=== PATIENT | male | born 1955 | race Caucasian/White ===

== ENCOUNTER → 2016-09-21 | Outpatient (CLI) | payer BC ==
[~2016-09-21] MED LIST: ALBU1AER9 INH; ASPI81TA28 PO; DUTA0.5C PO; MISC1CAP60 PO; MULT-610 PO; POLYSOL4 OP; PRLSR20 PO; SIMV10TA2 PO; TAMS0.4C38 PO; TURM1CAP4 PO; WARF2TAB PO; [UNRECOGNIZED DRUG - MIXTURE] TOP
--- NOTE | 2016-09-21 12:35 | DIAGNOSTIC IMAGING REPORT ---
L-SPINE MIN 4 VIEWS ROUTINE CLINICAL HISTORY: LOW BACK PAIN COMPARISON STUDY: No previous studies for comparison. FINDINGS: No fractures are visualized. There are degenerative changes with prominent anterior and lateral osteophytic spurring. There are bridging anterior osteophytes at the T10-L2 levels. Posterior disc osteophyte complexes are suspected the L2-3 and L3-4 levels. Underlying spinal canal narrowing most be considered. IMPRESSION: 1. No acute fractures 2. Moderate multilevel degenerative change. Underlying spinal canal narrowing most be considered. Electronically signed by: Jac Nathan M.D. 09/21/2016 12:34 PM Dictated Date/Time: 09/21/2016 12:29 PM
--- NOTE | 2016-09-21 12:36 | DIAGNOSTIC IMAGING REPORT ---
SACRUM COCCYX MIN 2 VIEWS CLINICAL HISTORY: LOW BACK PAIN pain COMPARISON STUDY: None FINDINGS: Moderate degenerative change of the sacroiliac joints bilaterally. 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 Sacral foramina are symmetric. Degenerative changes low lumbar spine. 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 Electronically signed by: Sachin Gong M.D. 09/21/2016 12:35 PM Dictated Date/Time: 09/21/2016 12:31 PM
== END | disposition home or self-care (01) ==
LOC: C.RAD 11:53
PROVIDERS: ATTEND Family Medicine
DX: M54.5 Low back pain (principal)

== ENCOUNTER → 2016-10-26 | Outpatient (CLI) | payer BC | END | disposition home or self-care (01) | LOC: C.RDSM 08:15 | PROVIDERS: ATTEND Physical Medicine & Rehabilitation Sports Medicine | DX: M17.11 Unilateral primary osteoarthritis, right knee (principal); Z96.651 Presence of right artificial knee joint ==

== ENCOUNTER → 2017-04-23 | Outpatient (CLI) | payer BC | END | disposition home or self-care (01) | LOC: C.RDSM 08:43 | PROVIDERS: ATTEND Physical Medicine & Rehabilitation Sports Medicine | DX: Z96.651 Presence of right artificial knee joint (principal); M17.12 Unilateral primary osteoarthritis, left knee ==

== ENCOUNTER 2023-03-05 19:07 | Observation (INO) ==
[2023-03-05 20:11] LABS: Basophils # (auto) 0.04 K/uL (0.00-0.20); Basophils % (auto) 0.3 %; Eosinophils # (auto) 0.07 K/uL (0.00-0.50); Eosinophils % (auto) 0.5 %; Hemoglobin 15.4 g/dl (14.0-18.0); Immature Granulocytes # (auto) 0.07 K/uL (0.01-0.20); Immature Granulocytes % (auto) 0.5 %; Lymphocytes # (auto) 1.58 K/uL (1.20-3.40); Lymphocytes % (auto) 10.8 %; Mean Corpuscular Hemoglobin 31.7 pg (25.0-34.0); Mean Corpuscular Volume 90.5 fL (80.0-100.0); Mean Platelet Volume 9.7 fL (9.4-12.4); Monocytes # (auto) 1.46 K/uL (0.11-0.59); Neutrophils # (auto) 11.43 K/uL (1.40-6.50); Neutrophils % (auto) 77.9 %; Platelet Count 244 K/uL (130-400); RDW Coefficient of Variation 13.2 % (11.5-14.5); RDW Standard Deviation 43.7 fL (36.4-46.3); Red Blood Count 4.86 M/uL (4.70-6.10); White Blood Count 14.65 K/ul (4.8-10.8)
[2023-03-05 20:37] LABS: Alanine Aminotransferase 23 U/L (7-52); Albumin Globulin Ratio 1.4 (0.9-2); Albumin Level 4.6 gm/dl (3.4-5.0); Alkaline Phosphatase 61 U/L (34-104); Anion Gap 7 (3-11); Aspartate Aminotransferase 24 U/L (13-39); BUN Creatinine Ratio 12.5 (10-20); Bilirubin,Total 1.4 mg/dl (0.2-1.0); Blood Urea Nitrogen 12 mg/dl (6-23); Calcium 9.7 mg/dl (8.6-10.3); Carbon Dioxide 28 mmol/L (21-32); Chloride 100 mmol/L (98-107); Est GFR (African American) 93.1 ml/min; Est GFR (Non-African American) 80.3 ml/min; Globulin 3.2 gm/dl (2.5-4.0); Glucose 113 mg/dl (70-99(Fasting)); Lipase 20 U/L (11-82); Potassium 4.2 mmol/L (3.5-5.1); Sodium 135 mmol/L (136-145); Total Protein 7.8 gm/dl (6.0-8.3)
[2023-03-05 20:42] LABS: Troponin I High Sensitivity 6.9 pg/ml (0-20)
[2023-03-05] MEDS ORDERED: SODIUM CHLORIDE 0.9% 500 ML IV ONE (20:54)
[2023-03-05] MEDS ORDERED: MoRPHine SULFATE 4 MG/ML 1 ML CARP\\VIAL IV STA (20:54)
[2023-03-05] MEDS ORDERED: ACETAMINOPHEN 1,000 MG/100 ML VIAL IV STA (20:54)
[2023-03-05] MEDS ORDERED: ONDANSETRON INJ 2 MG/ML 2 ML VIAL IV STA (20:54)
--- NOTE | 2023-03-05 20:59 | Emergency Department Note ---
Impression & Plan SOB (shortness of breath), Pulmonary emboli, Acute left flank pain, LUQ abdominal pain, Leukocytosis ED Provider Note NAME: MARKOS RAO AGE: 68 SEX: M : 1955 ARRIVES VIA: Walk-In INFORMANT: [Patient] ED PROVIDER(S): [Carlos Tate MD] CHIEF COMPLAINT: Shortness of breath, left-sided chest pain HISTORY OF PRESENT ILLNESS: The patient is a 68-year-old male who states that this morning, around 12 hours ago, he began to notice pain in his left shoulder blade. The pain increased throughout the day and has spread down across the left chest and is now in the left upper quadrant. He has pain to move and to take a breath and he feels short of breath. No fever or cough. No trauma. No recent long trip by car plane or train. He has never had this kind of discomfort before. He had been in baseline health lately. No history of previous DVT or PE, no family history of this diagnosis. Patient was switched to flecainide about a month ago as his beta-blockers were not working. He has a history of PVCs. The patient did have about 24 hours of diarrhea over this past weekend, 5 days ago, the diarrhea resolved. PMHx/PSHx: See Below SOCIAL HISTORY: See Below. PHYSICAL EXAM: GENERAL: Patient is in mild distress from pain. HEENT: No acute trauma, normocephalic atraumatic, mucous membranes moist, no nasal congestion. NECK: No stridor, no adenopathy, no meningismus, trachea is midline. LUNGS: There are some crackles at the left base, no wheezing, no respiratory distress. Chest: Tender across the left lower ribs anteriorly. No rash. HEART: Without murmurs gallops or rubs, regular rate and rhythm. ABDOMEN: Soft, moderately tender in the epigastrium and left upper quadrant, no rash. His pain does worsen with movement. EXTREMITIES: No cyanosis or edema, full range of motion of all the joints without pain or difficulty, no signs for acute trauma. NEUROLOGIC: Oriented x 3, no acute motor or sensory deficits, no focal weakness. SKIN: No rash, no jaundice, no diaphoresis. Rectal: Brown stool, heme-negative. DIFFERENTIAL DIAGNOSIS: PE, pneumonia, free air, pancreatitis, splenic infarct, splenic rupture, diverticulitis, abscess, musculoskeletal pain, among others. EMERGENCY DEPARTMENT COURSE/PROCEDURES: Prior/Outside records reviewed: Recent cardiology note. ECG per my interpretation: Indication was chest pain. The ECG shows a sinus rhythm with a PVC. The rate is 74. There is a potential old anterior infarct noted. There is no ST elevation. There is some baseline artifact. The QTc is 424. Continuous Cardiac Monitoring per my interpretation: An order was placed for continuous cardiac monitoring. The monitor shows a rate of 88 with sinus rhythm with PVCs. Critical Care Note: I have personally spent 47 minutes of critical care time in the direct management of this patient. This includes bedside care, interpret ation of diagnostic studies, and testing, discussion with consultants, patient, and family members, and other required patient management activities. This 47 minutes is in excess of all separately billable procedures. MEDICAL DECISION MAKING: There is a moderate leukocytosis, this could be consistent with infection or just his pain. There is a normal hemoglobin and platelet count. D-dimer was quite high at over 8000, this certainly makes PE more likely. No renal failure or significant electrolyte abnormality. No concerning liver enzyme elevation. No evidence for pancreatitis. ECG shows a sinus rhythm, no obvious ischemia. Cardiac enzyme testing x1 does not suggest acute cardiac injury. Chest film per my review does not show mediastinal widening, pneumonia or pneumothorax. There was some atelectasis at the left base. Chest CT does show multiple bilateral pulmonary emboli. No pneumonia. Abdominal and pelvis CT does not show any acute traumatic finding, no acute surgical process. No diverticulitis. On exam, the patient was quite uncomfortable with movement and taking a deep breath. He was not hypoxic. The patient was given a 500 cc saline bolus. He was given IV morphine and IV Zofran. Additional IV morphine was ordered to be given as needed. He was given IV Tylenol. He was eventually given an IV heparin bolus and placed on a heparin drip. I did speak the patient about his findings, he has pulmonary emboli which I do believe is causing his dyspnea and pain. He will require a hospital stay and anticoagulation. He will require a work-up to help explain the reason for the pulmonary emboli. I spoke with the patient and case management, the on-call hospitalist was consulted. DISPOSITION: Patient's presentation and findings warrant a hospital stay. Past Med/Surg History Medical History Arthritis BPH (benign prostatic hyperplasia) Heartburn occasional History of abnormal electrocardiogram "pre beats" Hyperlipidemia Kidney stones no surgery intervention. Lumbar spinal stenosis Osteoarthritis Peripheral neuropathy Spinal stenosis Spinal stenosis of lumbar region with radiculopathy Surgical History History of arthroscopy R/L knee History of colonoscopy X 4 History of total knee replacement RIGHT History of urologic surgery UROLIFT S/P epidural steroid injection Family History Mother Family hx of colon cancer Daughter Family history of thyroid cancer Social History Smoking Status: Never smoker Cigarettes Per Day: 40 years ago; Second Hand Exposure: No; Do You Dip or Chew Tobacco: No (quit 20+ years ago); Hx Alcohol Use: Yes Alcohol type: wine Hx Substance Use: No Preferred Language: Romansh Communication Ability: Effective Physician President Required: No Beliefs That Will Affect Care: None Current Living Situation: Spouse Feels Safe at Home: Yes Assistive Devices: Glasses Allergies Allergies Allergy/AdvReac Type Severity Reaction Status Date / Time lansoprazole [From Prevacid] Allergy Intermediate Palpitation Verified 01/19/23 11:38 s lactose AdvReac Mild Gastrointestinal Verified 01/19/23 11:38 Upset Home Meds Home Medications Medication Instructions Recorded Confirmed albuterol sulfate 90 mcg/actuation 2 puff inhalation Q6H PRN Wheezing 10/06/19 01/19/23 aerosol inhaler clotrimazole-betamethasone 1 1 applic topical BID PRN Rash 10/06/19 01/19/23 %-0.05 % topical cream coQ10 (ubiquinol) 200 mg capsule 400 mg PO QAM 10/06/19 01/19/23 glucosamine-chondroitin 250 mg-200 1 tab PO QAM 10/06/19 01/19/23 mg tablet (Osteo Bi-Flex) ibuprofen 200 mg tablet 400 mg PO Q6H PRN Pain 10/06/19 01/19/23 multivitamin 1 cap PO QAM 10/06/19 01/19/23 naproxen sodium 220 mg tablet 220 mg PO BID PRN Pain 10/06/19 01/19/23 (Aleve) omega 6-jgf-lsv-fish oil 1,000 mg 1 cap PO QAM 10/06/19 01/19/23 (120 mg-180 mg) capsule (Fish Oil) peg 400-propylene glycol (PF) 0.4 1 drp ophthalmic (eye) BID PRN 10/06/19 01/19/23 %-0.3 % eye drops in a dropperette redness (Systane (PF)) potassium gluconate 595 mg (99 mg) 595 mg PO 2XWK 10/06/19 01/19/23 tablet ascorbic acid (vitamin C) 500 mg 1,000 mg PO BID 05/22/20 01/19/23 tablet (Vitamin C) acetaminophen 325 mg capsule 325 mg PO QID PRN 11/09/22 01/19/23 omeprazole [Prilosec] PO DAILY 12/10/22 01/19/23 Previous Rx's Medication Instructions Recorded tadalafil 5 mg tablet 5 mg PO DAILY #90 tabs 02/18/22 tamsulosin 0.4 mg capsule (Flomax) 0.4 mg PO QAM #90 caps 12/23/22 flecainide 50 mg tablet 50 mg PO Q12H #60 tabs 01/19/23 Results & Data (ED) Vital Signs Vital Signs - 24 hr 03/05/23 19:13 03/05/23 20:50 03/05/23 20:50 Temperature 37.1 C Temperature Source Oral Pulse Rate 78 Pulse Rate [Apical] 88 Respiratory Rate 20 20 Respiratory Effort / Characteristics Respiratory Depth Normal Blood Pressure 153/87 H Blood Pressure [Left Arm] 161/94 H Blood Pressure Mean 109 Blood Pressure Mean [Left Arm] 116 Pulse Oximetry 94 96 96 Oxygen Delivery Method Room Air Room Air Room Air Sepsis Recent Fever Within 48 Hours No Sepsis New/Unexplained Change in Mental Status No Sepsis Action Taken by Nursing No Action Required 03/05/23 20:50 03/05/23 20:46 03/05/23 22:00 Temperature Temperature Source Pulse Rate 88 72 Pulse Rate [Apical] 57 L Respiratory Rate 20 20 Respiratory Effort / Characteristics Respiratory Depth Blood Pressure Blood Pressure [Left Arm] 161/94 H Blood Pressure Mean Blood Pressure Mean [Left Arm] 116 Pulse Oximetry 96 94 Oxygen Delivery Method Room Air Sepsis Recent Fever Within 48 Hours Sepsis New/Unexplained Change in Mental Status Sepsis Action Taken by Nursing 03/05/23 23:48 Temperature Temperature Source Pulse Rate Pulse Rate [Apical] 61 Respiratory Rate 20 Respiratory Effort / Characteristics Non-Labored Spontaneous Respiratory Depth Normal Blood Pressure Blood Pressure [Left Arm] 139/78 Blood Pressure Mean Blood Pressure Mean [Left Arm] 98 Pulse Oximetry 93 Oxygen Delivery Method Room Air Sepsis Recent Fever Within 48 Hours Sepsis New/Unexplained Change in Mental Status Sepsis Action Taken by Skilled Nursing Medications Current Medication List: was personally reviewed by me Laboratory Data Attestation: I reviewed the patient's lab results. 03/05/23 19:53 03/05/23 19:53 Lab Results 03/05/23 03/05/23 03/05/23 Range/Units 19:53 19:53 19:53 WBC 14.65 H (4.8-10.8) K/ul RBC 4.86 (4.70-6.10) M/uL Hgb 15.4 (14.0-18.0) g/dl Hct 44.0 (42.0-52.0) % MCV 90.5 (80.0-100.0) fL MCH 31.7 (25.0-34.0) pg MCHC 35.0 (32.0-36.0) g/dL RDW Std Deviation 43.7 (36.4-46.3) fL RDW Coeff of Mary Anne 13.2 (11.5-14.5) % Plt Count 244 (130-400) K/uL MPV 9.7 (9.4-12.4) fL Immature Gran % (Auto) 0.5 % Neut % (Auto) 77.9 % Lymph % (Auto) 10.8 % Pitkin % (Auto) 10.0 % Eos % (Auto) 0.5 % Baso % (Auto) 0.3 % Neut # (Auto) 11.43 H (1.40-6.50) K/uL Lymph # (Auto) 1.58 (1.20-3.40) K/uL Pitkin # (Auto) 1.46 H (0.11-0.59) K/uL Eos # (Auto) 0.07 (0.00-0.50) K/uL Baso # (Auto) 0.04 (0.00-0.20) K/uL Immature Gran # (Auto) 0.07 (0.01-0.20) K/uL D-Dimer 8050 H* (0-500) ug/L FEU Sodium 135 L (136-145) mmol/L Potassium 4.2 (3.5-5.1) mmol/L Chloride 100 (98-107) mmol/L Carbon Dioxide 28 (21-32) mmol/L Anion Gap 7 (3-11) BUN 12 (6-23) mg/dl Creatinine 0.96 (0.6-1.4) mg/dl Est Cr Clr Drug Dosing Not Reportable Est GFR ( Amer) 93.1 ml/min Est GFR (Non-Af Amer) 80.3 ml/min BUN/Creatinine Ratio 12.5 (10-20) Glucose 113 H (70-99(Fasting)) mg/dl Calcium 9.7 (8.6-10.3) mg/dl Total Bilirubin 1.4 H (0.2-1.0) mg/dl AST 24 (13-39) U/L ALT 23 (7-52) U/L Alkaline Phosphatase 61 (34-104) U/L Troponin I High Sens 6.9 (0-20) pg/ml Total Protein 7.8 (6.0-8.3) gm/dl Albumin 4.6 (3.4-5.0) gm/dl Globulin 3.2 (2.5-4.0) gm/dl Albumin/Globulin Ratio 1.4 (0.9-2) Lipase 20 (11-82) U/L Administered Medications Morphine Sulfate (Morphine Sulfate 4 Mg/Ml 1 Ml Carp\\Vial) 4 mg IV Q15M PRN PRN Reason: Pain Stop: 03/19/23 22:37 Last Admin: 03/05/23 23:50 Dose: 4 mg Documented By: KMF Discontinued Medications Acetaminophen (Ofirmev) 1,000 mg in 100 mls @ 400 mls/hr IV NOW STA Stop: 03/05/23 21:08 Last Infusion: 03/05/23 21:44 Dose: 400 mls/hr Documented By: Admin: 03/05/23 21:07 Dose: 400 mls/hr Documented By: LOPEZ Sodium Chloride (Nss) 500 mls @ 999 mls/hr IV .Q31M ONE Stop: 03/05/23 21:24 Last Infusion: 03/05/23 21:45 Dose: 999 mls/hr Documented By: Admin: 03/05/23 21:07 Dose: 999 mls/hr Documented By: LOPEZ Ioversol (Optiray 320 500ml) 111 ml IV ONCE ONE Stop: 03/05/23 22:04 Last Admin: 03/05/23 22:04 Dose: 111 ml Documented By: CAMELIA Morphine Sulfate (Morphine Sulfate 4 Mg/Ml 1 Ml Carp\\Vial) 4 mg IV NOW STA Stop: 03/05/23 20:55 Last Admin: 03/05/23 21:07 Dose: 4 mg Documented By: LOPEZ Ondansetron HCl (Ondansetron Inj 2 Mg/Ml 2 Ml Vial) 4 mg IV NOW STA Stop: 03/05/23 20:55 Last Admin: 03/05/23 21:07 Dose: 4 mg Documented By: LOPEZ Imaging Data Radiologist's Impression: Chest CTA 03/05/23 20:43 CR Exam(s): CTA CHEST IV Amt: 111ML OPTIRAY 320 EXAM: CT Angiography Chest With Intravenous Contrast CLINICAL HISTORY: PE. TECHNIQUE: Axial computed tomographic angiography images of the chest with intravenous contrast. CTDI is 26.52 mGy and DLP is 1452.82 mGy-cm. Automated exposure control was utilized for the study. A dose lowering technique was utilized adhering to the principles of ALARA. MIP reconstructed images were created and reviewed. COMPARISON: No relevant prior studies available. FINDINGS: Pulmonary arteries: Pulmonary emboli noted involving the bilateral lower lobes with more prominent clot burden noted involving the left lower lobe. Nearly all lung segments noted on the left with relative preservation of the anterior basal segment. The right lower lobe posterior basal segments are involved. There is also partially occlusive thrombus in the proximal superior lingular segment. There is also proximal occlusive thrombus in the segments serving the right middle lobe and the right posterior apical segments.. Aorta: No acute findings. No thoracic aortic aneurysm. Lungs: Subsegmental changes at the left lung base and inferior lingular segments. No mass. Pleural space: Trace left subcentimeter layering pleural effusion. No loculation. No pneumothorax. Heart: The cardiac chambers are normal in size. No evidence for right heart strain. Bones/joints: No acute fracture. No dislocation. Soft tissues: Unremarkable. Lymph nodes: Unremarkable. No enlarged lymph nodes. IMPRESSION: 1. Pulmonary emboli, as noted above, predominantly involving the bilateral lower lobes and the proximal right middle lobe. No CT evidence for right heart strain. 2. Subsegmental changes at the left lung base and inferior lingular segments. This is presumed atelectasis or CT equivalent of a Mendoza's hump. Trace left presumed reactive pleural effusion. Communications: Call Doctor Pulmonary Embolism Electronically signed by: Teja Nolasco MD 03/05/23 23:42 PM Abdomen/Pelvis CT 03/05/23 20:54 Exam(s): CT ABDOMEN + PELVIS With Contrast IV Amt: 111ML OPTIRAY 320 EXAM: CT Abdomen and Pelvis With Intravenous Contrast CLINICAL HISTORY: luq pain. TECHNIQUE: Axial computed tomography images of the abdomen and pelvis with intravenous contrast. CTDI is 28.14 mGy and DLP is 873.63 mGy-cm. Automated exposure control was utilized for the study. A dose lowering technique was utilized adhering to the principles of ALARA. CONTRAST: Patient received 111ML OPTIRAY 320 of IV contrast COMPARISON: CT abdomen and pelvis without contrast dated 02/21/2021 FINDINGS: Lung bases: For findings regarding the lung bases, please see the CTA of the chest performed concurrently. ABDOMEN: Liver: Hepatic steatosis. Gallbladder and bile ducts: Unremarkable. No calcified stones. No ductal dilation. Pancreas: Unremarkable. No mass. No ductal dilation. Spleen: Unremarkable. No splenomegaly. Adrenals: Unremarkable. No mass. Kidneys and ureters: The kidneys demonstrate normal enhancement without hydronephrosis. Similar parapelvic renal cysts. No nephrolithiasis. Stomach and bowel: Unremarkable. No obstruction. No mucosal thickening. PELVIS: Appendix: The appendix is not clearly delineated. No secondary findings to suggest acute appendicitis. Bladder: Unremarkable. No mass. Reproductive: Metallic rods noted in the prostate gland consistent with prior brachytherapy. ABDOMEN and PELVIS: Intraperitoneal space: Unremarkable. No free air. No significant fluid collection. Bones/joints: No acute fracture. No dislocation. Soft tissues: Unremarkable. Vasculature: Unremarkable. No abdominal aortic aneurysm. Lymph nodes: Unremarkable. No enlarged lymph nodes. IMPRESSION: No significant abnormality identified within the abdomen or pelvis. Incidental findings, as noted above, not appreciably altered from the previous examination. Electronically signed by: Teja Nolasco MD 03/05/23 23:54 PM Discharge Plan Visit Data Chief Complaint: Shortness of Breath/Dyspnea Stated Complaint: SOB, PAIN WHEN BREATHING AND COUGHING ED Provider: Carlos Tate Discharge Problem: SOB (shortness of breath), Pulmonary emboli, Acute left flank pain, LUQ abdominal pain, Leukocytosis Patient Disposition: Admitted As Inpatient Condition: Serious Forms Stand Alone Forms: My [facility] Medical Prescriptions Prescriptions: No Action tamsulosin [Flomax] 0.4 mg capsule 0.4 mg PO QAM Qty: 90 3RF acetaminophen 325 mg capsule 325 mg PO QID PRN tadalafil 5 mg tablet 5 mg PO DAILY Qty: 90 3RF omeprazole [Prilosec] PO DAILY flecainide 50 mg tablet 50 mg PO Q12H Qty: 60 2RF clotrimazole-betamethasone 1-0.05 % Cream 1 applic TOPICAL BID PRN (Reason: Rash) Rx Instructions: feet naproxen sodium [Aleve] 220 mg Tablet 220 mg PO BID PRN (Reason: Pain) ibuprofen 200 mg Tablet 400 mg PO Q6H PRN (Reason: Pain) albuterol sulfate 90 mcg/actuation Hfa Aerosol Inhaler 2 puff INHALATION Q6H PRN (Reason: Wheezing) multivitamin Capsule 1 cap PO QAM glucosamine-chondroitin [Osteo Bi-Flex] 250-200 mg Tablet 1 tab PO QAM Systane (PF) 0.4-0.3 % Dropperette 1 drp OPHTHALMIC (EYE) BID PRN (Reason: redness) potassium gluconate 595 mg (99 mg) Tablet 595 mg PO 2XWK Rx Instructions: m/f coQ10 (ubiquinol) 200 mg Capsule 400 mg PO QAM omega 0-ppy-obw-fish oil [Fish Oil] 1,000 mg (120 mg-180 mg) Capsule 1 cap PO QAM ascorbic acid (vitamin C) [Vitamin C] 500 mg Tablet 1,000 mg PO BID Referrals Referrals: Akua Corbett DO [Primary Care Provider] -
[2023-03-05 21:01] LABS: D Dimer 8050 ug/L FEU (0-500)
[2023-03-05] MEDS ORDERED: OPTIRAY 320 500ml IV ONE (22:03)
--- NOTE | 2023-03-05 23:43 | CT Scan Report ---
Exam(s): CTA CHEST IV Amt: 111ML OPTIRAY 320 EXAM: CT Angiography Chest With Intravenous Contrast CLINICAL HISTORY: PE. TECHNIQUE: Axial computed tomographic angiography images of the chest with intravenous contrast. CTDI is 26.52 mGy and DLP is 1452.82 mGy-cm. Automated exposure control was utilized for the study. A dose lowering technique was utilized adhering to the principles of ALARA. MIP reconstructed images were created and reviewed. COMPARISON: No relevant prior studies available. FINDINGS: Pulmonary arteries: Pulmonary emboli noted involving the bilateral lower lobes with more prominent clot burden noted involving the left lower lobe. Nearly all lung segments noted on the left with relative preservation of the anterior basal segment. The right lower lobe posterior basal segments are involved. There is also partially occlusive thrombus in the proximal superior lingular segment. There is also proximal occlusive thrombus in the segments serving the right middle lobe and the right posterior apical segments.. Aorta: No acute findings. No thoracic aortic aneurysm. Lungs: Subsegmental changes at the left lung base and inferior lingular segments. No mass. Pleural space: Trace left subcentimeter layering pleural effusion. No loculation. No pneumothorax. Heart: The cardiac chambers are normal in size. No evidence for right heart strain. Bones/joints: No acute fracture. No dislocation. Soft tissues: Unremarkable. Lymph nodes: Unremarkable. No enlarged lymph nodes. IMPRESSION: 1. Pulmonary emboli, as noted above, predominantly involving the bilateral lower lobes and the proximal right middle lobe. No CT evidence for right heart strain. 2. Subsegmental changes at the left lung base and inferior lingular segments. This is presumed atelectasis or CT equivalent of a Mendoza's hump. Trace left presumed reactive pleural effusion. Communications: Call Doctor Pulmonary Embolism Electronically signed by: Teja Nolasco MD 03/05/23 23:42 PM
[2023-03-05] MEDS: MoRPHine SULFATE 4 MG/ML 1 ML CARP\\VIAL IV PRN (23:50)
--- NOTE | 2023-03-05 23:56 | CT Scan Report ---
Exam(s): CT ABDOMEN + PELVIS With Contrast IV Amt: 111ML OPTIRAY 320 EXAM: CT Abdomen and Pelvis With Intravenous Contrast CLINICAL HISTORY: luq pain. TECHNIQUE: Axial computed tomography images of the abdomen and pelvis with intravenous contrast. CTDI is 28.14 mGy and DLP is 873.63 mGy-cm. Automated exposure control was utilized for the study. A dose lowering technique was utilized adhering to the principles of ALARA. CONTRAST: Patient received 111ML OPTIRAY 320 of IV contrast COMPARISON: CT abdomen and pelvis without contrast dated 02/21/2021 FINDINGS: Lung bases: For findings regarding the lung bases, please see the CTA of the chest performed concurrently. ABDOMEN: Liver: Hepatic steatosis. Gallbladder and bile ducts: Unremarkable. No calcified stones. No ductal dilation. Pancreas: Unremarkable. No mass. No ductal dilation. Spleen: Unremarkable. No splenomegaly. Adrenals: Unremarkable. No mass. Kidneys and ureters: The kidneys demonstrate normal enhancement without hydronephrosis. Similar parapelvic renal cysts. No nephrolithiasis. Stomach and bowel: Unremarkable. No obstruction. No mucosal thickening. PELVIS: Appendix: The appendix is not clearly delineated. No secondary findings to suggest acute appendicitis. Bladder: Unremarkable. No mass. Reproductive: Metallic rods noted in the prostate gland consistent with prior brachytherapy. ABDOMEN and PELVIS: Intraperitoneal space: Unremarkable. No free air. No significant fluid collection. Bones/joints: No acute fracture. No dislocation. Soft tissues: Unremarkable. Vasculature: Unremarkable. No abdominal aortic aneurysm. Lymph nodes: Unremarkable. No enlarged lymph nodes. IMPRESSION: No significant abnormality identified within the abdomen or pelvis. Incidental findings, as noted above, not appreciably altered from the previous examination. Electronically signed by: Teja Nolasco MD 03/05/23 23:54 PM
[2023-03-06] MEDS ORDERED: Heparin IV Adult Wt-Based Low-Dose WITH Bolus Protocol IV STA (00:05)
[2023-03-06] MEDS ORDERED: HEPARIN SOD (PORCINE) 1000 UNIT/ML IV ONE ×2 (00:20→01:00)
[2023-03-06] MEDS ORDERED: TAMSULOSIN HCL 0.4 MG CAP PO ONE (00:38)
[2023-03-06] MEDS ORDERED: FLECAINIDE ACETATE 100 MG TABLET PO ONE (00:39)
[2023-03-06 02:12] LABS: INR 1.1 (0.9-1.1); Partial Thromboplastin Time 27.2 Seconds (21.0-31.0); Prothrombin Time 11.5 Seconds (9.0-12.0)
--- NOTE | 2023-03-06 02:12 | History & Physical Report ---
Date of Service March 06, 2023 Assessment & Plan (1) Bilateral pulmonary embolism: (2) Deep vein thrombosis (DVT) of right lower extremity: Plan Bilateral pulmonary emboli/DVT of right lower extremity- Heparin bolus then drip begun in the ED, and will continue Hypercoagulable work-up Patient is not requiring oxygen or inhalers/nebulizers Will likely convert to DOAC in a.m. Should avoid use of naproxen or other NSAIDs while on anticoagulation Of note, patient was diagnosed with COVID few home test in August, and took prescribed course of Paxlovid Dysrhythmia- Continue flecainide 50 mg p.o. every 12 hours BPH with LUTS- Continue tamsulosin History of Present Illness Chief Complaint: The patient presents to the emergency department with complaint of pain in his left shoulder blade area about 12 hours prior to arrival, which later went into his left chest wall and into his left upper quadrant. Primary Care Provider: Akua Corbett DO The patient is a 68-year-old male with a past medical history including dilation of thoracic aorta, bradycardia, frequent unifocal PVCs, bilateral kidney stones, BPH with LUTS and lumbar spinal stenosis. The patient presents to the emergency department with left shoulder blade, chest wall and left upper quadrant pain as noted Significant laboratories: WBC 14.65, hemoglobin 15.4, hematocrit 44.0, glucose 113, D-dimer 8050, total bilirubin 1.4 CT scan abdomen and pelvis negative for acute findings CT angiography of chest reveals PEs in bilateral lower lobes and proximal right middle lobe From the ED the patient received the following: Heparin IV bolus then drip, morphine sulfate 4 mg IV, Zofran 4 mg IV, Tylenol 1 g IV and normal saline 500 mils per hour bolus During system review, patient does complain of right anterior thigh pain over the past 3 weeks Allergies Allergy/AdvReac Type Severity Reaction Status Date / Time lansoprazole [From Prevacid] Allergy Intermediate Palpitation Verified 01/19/23 11:38 s lactose AdvReac Mild Gastrointestinal Verified 01/19/23 11:38 Upset Home Medications Medication Instructions Recorded Confirmed Type albuterol sulfate 90 mcg/actuation 2 puff inhalation Q6H PRN Wheezing 10/06/19 01/19/23 History aerosol inhaler clotrimazole-betamethasone 1 1 applic topical BID PRN Rash 10/06/19 01/19/23 History %-0.05 % topical cream coQ10 (ubiquinol) 200 mg capsule 400 mg PO QAM 10/06/19 01/19/23 History glucosamine-chondroitin 250 mg-200 1 tab PO QAM 10/06/19 01/19/23 History mg tablet (Osteo Bi-Flex) ibuprofen 200 mg tablet 400 mg PO Q6H PRN Pain 10/06/19 01/19/23 History multivitamin 1 cap PO QAM 10/06/19 01/19/23 History naproxen sodium 220 mg tablet 220 mg PO BID PRN Pain 10/06/19 01/19/23 History (Aleve) omega 0-mej-jhi-fish oil 1,000 mg 1 cap PO QAM 10/06/19 01/19/23 History (120 mg-180 mg) capsule (Fish Oil) peg 400-propylene glycol (PF) 0.4 1 drp ophthalmic (eye) BID PRN 10/06/19 01/19/23 History %-0.3 % eye drops in a dropperette redness (Systane (PF)) potassium gluconate 595 mg (99 mg) 595 mg PO 2XWK 10/06/19 01/19/23 History tablet ascorbic acid (vitamin C) 500 mg 1,000 mg PO BID 05/22/20 01/19/23 History tablet (Vitamin C) tadalafil 5 mg tablet 5 mg PO DAILY #90 tabs 02/18/22 01/19/23 Rx acetaminophen 325 mg capsule 325 mg PO QID PRN 11/09/22 01/19/23 History omeprazole [Prilosec] PO DAILY 12/10/22 01/19/23 History tamsulosin 0.4 mg capsule (Flomax) 0.4 mg PO QAM #90 caps 12/23/22 01/19/23 Rx flecainide 50 mg tablet 50 mg PO Q12H #60 tabs 01/19/23 01/19/23 Rx Past Med/Surg History Medical History (Updated 03/06/23 @ 05:41 by Cory Zamora MD) Arthritis BPH (benign prostatic hyperplasia) Heartburn occasional History of abnormal electrocardiogram "pre beats" Hyperlipidemia Kidney stones no surgery intervention. Lumbar spinal stenosis Osteoarthritis Peripheral neuropathy Spinal stenosis Spinal stenosis of lumbar region with radiculopathy Surgical History History of arthroscopy R/L knee History of colonoscopy X 4 History of total knee replacement RIGHT History of urologic surgery UROLIFT S/P epidural steroid injection Family History Mother Family hx of colon cancer Daughter Family history of thyroid cancer Social History Smoking Status: Never smoker Cigarettes Per Day: 40 years ago; Second Hand Exposure: No; Do You Dip or Chew Tobacco: No; Tobacco Cessation Education Requested by Patient: No Hx Alcohol Use: Yes Alcohol type: wine Hx Substance Use: No Preferred Language: [place]i Communication Ability: Effective Multi Slide Machine Tender Required: No Beliefs That Will Affect Care: None Current Living Situation: Spouse Other Information That Helps Us Care for You: No Feels Safe at Home: Yes Safety Concerns: Feels Safe At This Time Assistive Devices: Glasses Review of Systems 2 Review of Systems: The patient denies chest pain, palpitations, cough, lower extremity swelling, sore throat, fevers, chills, sweats, nausea, vomiting, diarrhea , constipation, abdominal pain, pelvic pain, blood in urine or stool, dysuria, urinary frequency or urgency, lightheadedness, dizziness, headache, memory loss, loss of consciousness, rash, abnormal bruising or bleeding, imbalance, focal or generalized weakness, numbness or tingling in arms or left leg, generalized arthralgias or myalgias, back or neck pain, or night sweats. The review of systems is otherwise negative other than for that already noted above, and at least 10 systems have been reviewed. Physical Exam Physical Exam: The patient is awake, alert and oriented 3, well developed and well nourished, normocephalic and atraumatic, lying in bed and in no acute distress. HEENT--PERRL, EOMI, mucous membranes and oropharynx normal. Neck--supple. No JVD. No bruits. Thyroid normal, trachea midline, no adenopathy. Heart--normal S1 and S2. No murmurs, rubs or gallops. Lungs--clear bilaterally, no respiratory distress, no accessory muscle use. Abdomen--normal bowel sounds and soft. Nontender. Nondistended, no hernias or masses, no organomegaly. Extremities--no cyanosis or clubbing. Trace bilateral pretibial pitting edema right greater than left Dermatologic--normal skin turgor, normal color, no abnormal lymph nodes, no rash. Neurologic--cranial nerves II through XII grossly intact. Rheumatologic--normal range of motion. Patient does complain of right anterior thigh pain on palpation Psychiatric--normal affect. Results & Data Results & Data Vital Signs (Past 12 Hours) Vital Signs Temp Pulse Pulse Resp BP BP Pulse Ox 03/06/23 00:42 64 03/05/23 23:48 61 20 139/78 93 03/05/23 22:00 57 L 20 161/94 H 94 03/05/23 20:46 72 03/05/23 20:50 88 20 96 03/05/23 20:50 88 20 161/94 H 96 03/05/23 20:50 96 03/05/23 19:13 37.1 C 78 20 153/87 H 94 O2 Del Method 03/06/23 00:42 03/05/23 23:48 Room Air 03/05/23 22:00 03/05/23 20:46 03/05/23 20:50 Room Air 03/05/23 20:50 Room Air 03/05/23 20:50 Room Air 03/05/23 19:13 Room Air Laboratory Results Laboratory Results WBC 11.82 K/ul (4.8-10.8) H 03/06/23 04:46 RBC 4.39 M/uL (4.70-6.10) L 03/06/23 04:46 Hgb 13.7 g/dl (14.0-18.0) L 03/06/23 04:46 Hct 41.0 % (42.0-52.0) L 03/06/23 04:46 MCV 93.4 fL (80.0-100.0) 03/06/23 04:46 MCH 31.2 pg (25.0-34.0) 03/06/23 04:46 MCHC 33.4 g/dL (32.0-36.0) 03/06/23 04:46 RDW Std Deviation 45.5 fL (36.4-46.3) 03/06/23 04:46 RDW Coeff of Mary Anne 13.2 % (11.5-14.5) 03/06/23 04:46 Plt Count 211 K/uL (130-400) 03/06/23 04:46 MPV 9.7 fL (9.4-12.4) 03/06/23 04:46 Immature Gran % (Auto) 0.6 % 03/06/23 04:46 Neut % (Auto) 77.2 % 03/06/23 04:46 Lymph % (Auto) 11.1 % 03/06/23 04:46 Bullitt % (Auto) 10.5 % 03/06/23 04:46 Eos % (Auto) 0.3 % 03/06/23 04:46 Baso % (Auto) 0.3 % 03/06/23 04:46 Neut # (Auto) 9.14 K/uL (1.40-6.50) H 03/06/23 04:46 Lymph # (Auto) 1.31 K/uL (1.20-3.40) 03/06/23 04:46 Bullitt # (Auto) 1.24 K/uL (0.11-0.59) H 03/06/23 04:46 Eos # (Auto) 0.03 K/uL (0.00-0.50) 03/06/23 04:46 Baso # (Auto) 0.03 K/uL (0.00-0.20) 03/06/23 04:46 Immature Gran # (Auto) 0.07 K/uL (0.01-0.20) 03/06/23 04:46 PT 11.5 Seconds (9.0-12.0) 03/06/23 00:50 INR 1.1 (0.9-1.1) 03/06/23 00:50 APTT 27.2 Seconds (21.0-31.0) 03/06/23 00:50 PTT Ratio 1.0 03/06/23 00:50 D-Dimer 8050 ug/L FEU (0-500) H* 03/05/23 19:53 Sodium 135 mmol/L (136-145) L 03/06/23 04:46 Potassium 4.4 mmol/L (3.5-5.1) 03/06/23 04:46 Chloride 101 mmol/L (98-107) 03/06/23 04:46 Carbon Dioxide 29 mmol/L (21-32) 03/06/23 04:46 Anion Gap 5 (3-11) 03/06/23 04:46 BUN 13 mg/dl (6-23) 03/06/23 04:46 Creatinine 0.86 mg/dl (0.6-1.4) 03/06/23 04:46 Est Cr Clr Drug Dosing 110.0 ml/min 03/06/23 04:46 Est GFR ( Amer) 102.5 ml/min 03/06/23 04:46 Est GFR (Non-Af Amer) 88.5 ml/min 03/06/23 04:46 BUN/Creatinine Ratio 15.1 (10-20) 03/06/23 04:46 Glucose 139 mg/dl (70-99(Fasting)) H 03/06/23 04:46 Calcium 8.8 mg/dl (8.6-10.3) 03/06/23 04:46 Phosphorus 3.2 mg/dl (2.5-4.9) 03/06/23 04:46 Total Bilirubin 1.4 mg/dl (0.2-1.0) H 03/05/23 19:53 AST 24 U/L (13-39) 03/05/23 19:53 ALT 23 U/L (7-52) 03/05/23 19:53 Alkaline Phosphatase 61 U/L (34-104) 03/05/23 19:53 Troponin I High Sens 6.9 pg/ml (0-20) 03/05/23 19:53 Total Protein 7.8 gm/dl (6.0-8.3) 03/05/23 19:53 Albumin 3.9 gm/dl (3.4-5.0) 03/06/23 04:46 Globulin 3.2 gm/dl (2.5-4.0) 03/05/23 19:53 Albumin/Globulin Ratio 1.4 (0.9-2) 03/05/23 19:53 Lipase 20 U/L (11-82) 03/05/23 19:53 Impressions Chest CTA 03/05/23 20:43 CR Exam(s): CTA CHEST IV Amt: 111ML OPTIRAY 320 EXAM: CT Angiography Chest With Intravenous Contrast CLINICAL HISTORY: PE. TECHNIQUE: Axial computed tomographic angiography images of the chest with intravenous contrast. CTDI is 26.52 mGy and DLP is 1452.82 mGy-cm. Automated exposure control was utilized for the study. A dose lowering technique was utilized adhering to the principles of ALARA. MIP reconstructed images were created and reviewed. COMPARISON: No relevant prior studies available. FINDINGS: Pulmonary arteries: Pulmonary emboli noted involving the bilateral lower lobes with more prominent clot burden noted involving the left lower lobe. Nearly all lung segments noted on the left with relative preservation of the anterior basal segment. The right lower lobe posterior basal segments are involved. There is also partially occlusive thrombus in the proximal superior lingular segment. There is also proximal occlusive thrombus in the segments serving the right middle lobe and the right posterior apical segments.. Aorta: No acute findings. No thoracic aortic aneurysm. Lungs: Subsegmental changes at the left lung base and inferior lingular segments. No mass. Pleural space: Trace left subcentimeter layering pleural effusion. No loculation. No pneumothorax. Heart: The cardiac chambers are normal in size. No evidence for right heart strain. Bones/joints: No acute fracture. No dislocation. Soft tissues: Unremarkable. Lymph nodes: Unremarkable. No enlarged lymph nodes. IMPRESSION: 1. Pulmonary emboli, as noted above, predominantly involving the bilateral lower lobes and the proximal right middle lobe. No CT evidence for right heart strain. 2. Subsegmental changes at the left lung base and inferior lingular segments. This is presumed atelectasis or CT equivalent of a Mendoza's hump. Trace left presumed reactive pleural effusion. Communications: Call Doctor Pulmonary Embolism Electronically signed by: Teja Nolasco MD 03/05/23 23:42 PM Abdomen/Pelvis CT 03/05/23 20:54 Exam(s): CT ABDOMEN + PELVIS With Contrast IV Amt: 111ML OPTIRAY 320 EXAM: CT Abdomen and Pelvis With Intravenous Contrast CLINICAL HISTORY: luq pain. TECHNIQUE: Axial computed tomography images of the abdomen and pelvis with intravenous contrast. CTDI is 28.14 mGy and DLP is 873.63 mGy-cm. Automated exposure control was utilized for the study. A dose lowering technique was utilized adhering to the principles of ALARA. CONTRAST: Patient received 111ML OPTIRAY 320 of IV contrast COMPARISON: CT abdomen and pelvis without contrast dated 02/21/2021 FINDINGS: Lung bases: For findings regarding the lung bases, please see the CTA of the chest performed concurrently. ABDOMEN: Liver: Hepatic steatosis. Gallbladder and bile ducts: Unremarkable. No calcified stones. No ductal dilation. Pancreas: Unremarkable. No mass. No ductal dilation. Spleen: Unremarkable. No splenomegaly. Adrenals: Unremarkable. No mass. Kidneys and ureters: The kidneys demonstrate normal enhancement without hydronephrosis. Similar parapelvic renal cysts. No nephrolithiasis. Stomach and bowel: Unremarkable. No obstruction. No mucosal thickening. PELVIS: Appendix: The appendix is not clearly delineated. No secondary findings to suggest acute appendicitis. Bladder: Unremarkable. No mass. Reproductive: Metallic rods noted in the prostate gland consistent with prior brachytherapy. ABDOMEN and PELVIS: Intraperitoneal space: Unremarkable. No free air. No significant fluid collection. Bones/joints: No acute fracture. No dislocation. Soft tissues: Unremarkable. Vasculature: Unremarkable. No abdominal aortic aneurysm. Lymph nodes: Unremarkable. No enlarged lymph nodes. IMPRESSION: No significant abnormality identified within the abdomen or pelvis. Incidental findings, as noted above, not appreciably altered from the previous examination. Electronically signed by: Teja Nolasco MD 03/05/23 23:54 PM Venous Doppler Study 03/06/23 00:46 Exam(s): US VENOUS BILATERAL LOWER EXTREMITIES EXAM: US Duplex Bilateral Lower Extremities Veins CLINICAL HISTORY: PE's. TECHNIQUE: Real-time duplex ultrasound scan of the bilateral lower extremity veins integrating B-mode two-dimensional vascular structure, Doppler spectral analysis, color flow Doppler imaging and compression. COMPARISON: No relevant prior studies available. FINDINGS: Right deep veins: The distal right superficial femoral vein and right popliteal vein are noncompressible with echogenic material and no evidence for color flow. The right common femoral and proximal to mid superficial femoral veins are patent and demonstrate normal color flow. Right superficial veins: Unremarkable. No thrombus in the saphenofemoral junction. Left deep veins: Unremarkable. No DVT in the left common femoral, femoral, proximal deep femoral or popliteal veins. The veins demonstrate normal color flow, are normally compressible, with normal phasic flow and/or augmentation response. The interrogated calf veins are patent. Left superficial veins: Unremarkable. No thrombus in the saphenofemoral junction. Soft tissues: No acute findings. No popliteal cyst. IMPRESSION: 1. The distal right superficial femoral vein and right popliteal vein are noncompressible with echogenic material and no evidence for color flow, consistent with occlusive deep vein thrombosis. 2. The right common femoral and proximal to mid superficial femoral veins are patent. 3. No evidence for deep vein thrombosis involving the left lower extremity. Electronically signed by: Teja Nolasco MD 03/06/23 05:17 AM Code Status & VTE Plan Code Status Full code VTE Prophylaxis Plan VTE Prophylaxis will be ordered: Yes PG Care Time/CCT Total # of Minutes Spent Total Time Spent with Patient: Total time spent is greater than 50% in coordination of care (as documented) at patient's floor/unit and/or counseling patient: Coding Level of Care Code 46990 INT INP/OBS CARE 3/75MIN Diagnoses Bilateral pulmonary embolism I26.99 Deep vein thrombosis (DVT) of right lower extremity I82.401
[2023-03-06] MEDS ORDERED: FLECAINIDE ACETATE 100 MG TABLET PO SCH (02:30)
[2023-03-06] MEDS ORDERED: ACETAMINOPHEN 325 MG TAB PO PRN (02:30)
[2023-03-06] MEDS ORDERED: ALBUTEROL HFA 8 GM INHALER INH PRN (02:30)
[2023-03-06] MEDS ORDERED: ONDANSETRON INJ 2 MG/ML 2 ML VIAL IV PRN (02:30)
[2023-03-06] MEDS: HEPARIN SODIUM/DEXTROSE 25,000 UNITS/500 ML BAG IV SCH ×2 (02:38→09:49)
[2023-03-06] MEDS: MoRPHine SULFATE 4 MG/ML 1 ML CARP\\VIAL IV PRN ×3 (04:53→16:13)
--- NOTE | 2023-03-06 05:18 | Ultrasound Report ---
Exam(s): US VENOUS BILATERAL LOWER EXTREMITIES EXAM: US Duplex Bilateral Lower Extremities Veins CLINICAL HISTORY: PE's. TECHNIQUE: Real-time duplex ultrasound scan of the bilateral lower extremity veins integrating B-mode two-dimensional vascular structure, Doppler spectral analysis, color flow Doppler imaging and compression. COMPARISON: No relevant prior studies available. FINDINGS: Right deep veins: The distal right superficial femoral vein and right popliteal vein are noncompressible with echogenic material and no evidence for color flow. The right common femoral and proximal to mid superficial femoral veins are patent and demonstrate normal color flow. Right superficial veins: Unremarkable. No thrombus in the saphenofemoral junction. Left deep veins: Unremarkable. No DVT in the left common femoral, femoral, proximal deep femoral or popliteal veins. The veins demonstrate normal color flow, are normally compressible, with normal phasic flow and/or augmentation response. The interrogated calf veins are patent. Left superficial veins: Unremarkable. No thrombus in the saphenofemoral junction. Soft tissues: No acute findings. No popliteal cyst. IMPRESSION: 1. The distal right superficial femoral vein and right popliteal vein are noncompressible with echogenic material and no evidence for color flow, consistent with occlusive deep vein thrombosis. 2. The right common femoral and proximal to mid superficial femoral veins are patent. 3. No evidence for deep vein thrombosis involving the left lower extremity. Electronically signed by: Teja Nolasco MD 03/06/23 05:17 AM
[2023-03-06 05:27] LABS: Basophils # (auto) 0.03 K/uL (0.00-0.20); Basophils % (auto) 0.3 %; Eosinophils # (auto) 0.03 K/uL (0.00-0.50); Eosinophils % (auto) 0.3 %; Hemoglobin 13.7 g/dl (14.0-18.0); Immature Granulocytes # (auto) 0.07 K/uL (0.01-0.20); Immature Granulocytes % (auto) 0.6 %; Lymphocytes # (auto) 1.31 K/uL (1.20-3.40); Lymphocytes % (auto) 11.1 %; Mean Corpuscular Hemoglobin 31.2 pg (25.0-34.0); Mean Corpuscular Hgb Conc 33.4 g/dL (32.0-36.0); Mean Corpuscular Volume 93.4 fL (80.0-100.0); Mean Platelet Volume 9.7 fL (9.4-12.4); Monocytes # (auto) 1.24 K/uL (0.11-0.59); Monocytes % (auto) 10.5 %; Neutrophils # (auto) 9.14 K/uL (1.40-6.50); Neutrophils % (auto) 77.2 %; Platelet Count 211 K/uL (130-400); RDW Coefficient of Variation 13.2 % (11.5-14.5); RDW Standard Deviation 45.5 fL (36.4-46.3); Red Blood Count 4.39 M/uL (4.70-6.10); White Blood Count 11.82 K/ul (4.8-10.8)
[2023-03-06 05:35] LABS: Albumin Level 3.9 gm/dl (3.4-5.0); BUN Creatinine Ratio 15.1 (10-20); Calcium 8.8 mg/dl (8.6-10.3); Est GFR (African American) 102.5 ml/min; Est GFR (Non-African American) 88.5 ml/min; Phosphorus 3.2 mg/dl (2.5-4.9); Potassium 4.4 mmol/L (3.5-5.1)
--- NOTE | 2023-03-06 08:36 | Hospitalist Progress Note ---
Date of Service March 06, 2023 Assessment & Plan (1) Bilateral pulmonary embolism: Plan: Bilateral pulmonary emboli/DVT of right lower extremity Heparin bolus then drip begun in the ED, and will continue Hypercoagulable work-up pending Patient now requiring supplemental O2 Will likely convert to DOAC in a.m. Should avoid use of naproxen or other NSAIDs while on anticoagulation Of note, patient was diagnosed with COVID few home test in August, and took prescribed course of Paxlovid Check TTE for heart strain eval (2) Deep vein thrombosis (DVT) of right lower extremity: Plan: As above (3) Frequent unifocal PVCs: Plan: Follows with cardiology Continue flecainide 50 mg p.o. every 12 hours (4) Anemia: Plan: In setting of starting heparin drip Check FOBT (5) Enlarged prostate with lower urinary tract symptoms (LUTS): Plan: Continue tamsulosin Admission and Anticipated Discharge Date Admission Date: March 06, 2023 Subjective Endorses left side pain, denies any significant dyspnea or substernal chest pain, denies palpitations, denies lightheadedness Patient notes that he is due for his colonoscopy in 2023gets every 5 years, mom with history of colon cancer Has had prior PSA a few years ago that was unremarkable Review of Systems Review of Systems: Per subjective Physical Exam Physical Exam: General: Well-appearing, NAD HEENT: NC in place Cardiovascular: RRR, no M/R/G Pulmonary: CTAB, no W/R/R, on 2L O2 at time of my evaluation Abdomen: Soft, NT/ND, no guarding Extremities: Moving all extremities, + bilateral pitting edema R>L Integumentary: No suspicious rash or lesion on exposed skin Neurologic: AAOx3, no focal deficits Psychiatric: Appropriate mood/affect Results & Data Results & Data Vital Signs (Past 12 Hours) Vital Signs Pulse Pulse Resp BP BP Pulse Ox O2 Del Method 03/06/23 07:10 56 L 03/06/23 06:38 Room Air 03/06/23 06:30 58 L 13 96 Room Air 03/06/23 03:00 55 L 19 03/06/23 02:00 53 L 18 128/77 03/06/23 01:23 63 24 135/84 95 Room Air 03/06/23 00:42 64 10/13/23 23:48 61 20 139/78 93 Room Air 03/05/23 22:00 57 L 20 161/94 H 94 03/05/23 20:46 72 03/05/23 20:50 88 20 96 Room Air 03/05/23 20:50 88 20 161/94 H 96 Room Air 03/05/23 20:50 96 Room Air Laboratory Results Reviewed CBC and BMP, notable for hemoglobin dropped to 13.7, mild leukocytosis improved from 1 day ago now down to 11.8, mild hyponatremia at 135 Hypercoagulable panel pending Diagnostic Findings Venous Doppler of bilateral lower extremities 03/06: IMPRESSION: 1. The distal right superficial femoral vein and right popliteal vein are noncompressible with echogenic material and no evidence for color flow, consistent with occlusive deep vein thrombosis. 2. The right common femoral and proximal to mid superficial femoral veins are patent. 3. No evidence for deep vein thrombosis involving the left lower extremity. PG Care Time/CCT Total # of Minutes Spent Total Time Spent with Patient: Total time spent is greater than 50% in coordination of care (as documented) at patient's floor/unit and/or counseling patient: Coding Level of Care Code 51721 SUB INP/OBS CARE 2/35MIN Diagnoses Bilateral pulmonary embolism I26.99 Deep vein thrombosis (DVT) of right lower extremity I82.401 Frequent unifocal PVCs I49.3 Anemia D64.9 Enlarged prostate with lower urinary tract symptoms (LUTS) N40.1
[2023-03-06 09:31] LABS: Partial Thromboplastin Ratio 1.2; Partial Thromboplastin Time 34.7 Seconds (21.0-31.0)
--- NOTE | 2023-03-06 10:37 | XRay Report ---
XR chest 1V portable CLINICAL HISTORY: Chest pain, nonspecific TECHNIQUE: Single frontal radiograph of the chest was obtained. Comparison: Comparison is made to chest radiograph 10/12/2022 FINDINGS: No lines and tubes are seen. The cardiomediastinal silhouette is normal. Minimal linear atelectasis i s left lung base. No evidence of pleural effusion or pneumothorax. IMPRESSION: No acute abnormalities. ACT 112: Negative or not required by law. Electronically signed by: Mik Benitez M.D. 03/06/2023 10:35 AM
[2023-03-06] MEDS: FLECAINIDE ACETATE 100 MG TABLET PO SCH ×2 (12:09→21:59)
[2023-03-06] MEDS: TAMSULOSIN HCL 0.4 MG CAP PO SCH (12:09)
[2023-03-06 16:57] LABS: Partial Thromboplastin Ratio 1.1; Partial Thromboplastin Time 32.4 Seconds (21.0-31.0)
[2023-03-06] MEDS ORDERED: HEPARIN IV BOLUS 4,000 UNITS in SYRINGE 0 ML IV ONE (18:00)
[2023-03-06] MEDS: oxyCODONE HCL IR 5 MG TAB (IMMEDIATE RELEASE) PO PRN (22:01)
[2023-03-07 00:27] LABS: Partial Thromboplastin Ratio 1.5
[2023-03-07 00:47] LABS: Partial Thromboplastin Time 41.6 Seconds (21.0-31.0)
[2023-03-07] MEDS: HEPARIN SODIUM/DEXTROSE 25,000 UNITS/500 ML BAG IV SCH (00:57)
[2023-03-07 06:59] LABS: Basophils # (auto) 0.03 K/uL (0.00-0.20); Basophils % (auto) 0.3 %; Eosinophils # (auto) 0.16 K/uL (0.00-0.50); Eosinophils % (auto) 1.5 %; Hematocrit (blood only) 40.2 % (42.0-52.0); Hemoglobin 13.6 g/dl (14.0-18.0); Immature Granulocytes # (auto) 0.06 K/uL (0.01-0.20); Immature Granulocytes % (auto) 0.6 %; Lymphocytes # (auto) 1.82 K/uL (1.20-3.40); Lymphocytes % (auto) 17.1 %; Mean Corpuscular Hemoglobin 31.5 pg (25.0-34.0); Mean Corpuscular Hgb Conc 33.8 g/dL (32.0-36.0); Mean Corpuscular Volume 93.1 fL (80.0-100.0); Mean Platelet Volume 9.4 fL (9.4-12.4); Monocytes # (auto) 0.99 K/uL (0.11-0.59); Monocytes % (auto) 9.3 %; Neutrophils # (auto) 7.61 K/uL (1.40-6.50); Neutrophils % (auto) 71.2 %; Platelet Count 227 K/uL (130-400); RDW Coefficient of Variation 13.2 % (11.5-14.5); RDW Standard Deviation 45.6 fL (36.4-46.3); Red Blood Count 4.32 M/uL (4.70-6.10); White Blood Count 10.67 K/ul (4.8-10.8)
--- NOTE | 2023-03-07 07:20 | Electrocardiogram Report ---
Test Reason : Blood Pressure : / mmHG Vent. Rate : 074 BPM Atrial Rate : 074 BPM P-R Int : 196 ms QRS Dur : 094 ms QT Int : 382 ms P-R-T Axes : 034 -30 062 degrees QTc Int : 424 ms Sinus rhythm with occasional Premature ventricular complexes Left axis deviation Possible Anterior infarct , age undetermined Abnormal ECG When compared with ECG of 10-DEC-2022 09:17, (unconfirmed) Sinus rhythm has replaced Junctional rhythm with ventricular bigeminy Confirmed by Jose Polk ([id number]) on 03/07/2023 7:19:53 AM Referred By: REFERRED SELF Confirmed By:Jose Polk
[2023-03-07 07:27] LABS: Albumin Level 3.8 gm/dl (3.4-5.0); BUN Creatinine Ratio 16.1 (10-20); Calcium 8.9 mg/dl (8.6-10.3); Creatinine Clr Calc Pharmacy 101.7 ml/min; Est GFR (African American) 96.7 ml/min; Est GFR (Non-African American) 83.5 ml/min; Magnesium 2.1 mg/dl (1.7-2.4); Phosphorus 3.2 mg/dl (2.5-4.9); Potassium 4.4 mmol/L (3.5-5.1)
[2023-03-07 07:33] LABS: Partial Thromboplastin Ratio 1.4; Partial Thromboplastin Time 39.6 Seconds (21.0-31.0)
[2023-03-07] MEDS: FLECAINIDE ACETATE 100 MG TABLET PO SCH (08:06)
[2023-03-07] MEDS: oxyCODONE HCL IR 5 MG TAB (IMMEDIATE RELEASE) PO PRN (08:08)
[2023-03-07] MEDS ORDERED: APIXABAN 5 MG TABLET PO SCH (09:00)
[2023-03-07] MEDS: TAMSULOSIN HCL 0.4 MG CAP PO SCH (09:31)
--- NOTE | 2023-03-07 13:45 | XCELERA ---
[id number] \\[id number]
--- NOTE | 2023-03-07 15:04 | Discharge Summary ---
Date of Service March 07, 2023 Admission HPI Per Admitting Provider The patient is a 68-year-old male with a past medical history including dilation of thoracic aorta, bradycardia, frequent unifocal PVCs, bilateral kidney stones, BPH with LUTS and lumbar spinal stenosis. The patient presents to the emergency department with left shoulder blade, chest wall and left upper quadrant pain as noted Significant laboratories: WBC 14.65, hemoglobin 15.4, hematocrit 44.0, glucose 113, D-dimer 8050, total bilirubin 1.4 CT scan abdomen and pelvis negative for acute findings CT angiography of chest reveals PEs in bilateral lower lobes and proximal right middle lobe From the ED the patient received the following: Heparin IV bolus then drip, morphine sulfate 4 mg IV, Zofran 4 mg IV, Tylenol 1 g IV and normal saline 500 mils per hour bolus During system review, patient does complain of right anterior thigh pain over the past 3 weeks Admission Exam Per Admitting Provider The patient is awake, alert and oriented 3, well developed and well nourished, normocephalic and atraumatic, lying in bed and in no acute distress. HEENT--PERRL, EOMI, mucous membranes and oropharynx normal. Neck--supple. No JVD. No bruits. Thyroid normal, trachea midline, no adenopathy. Heart--normal S1 and S2. No murmurs, rubs or gallops. Lungs--clear bilaterally, no respiratory distress, no accessory muscle use. Abdomen--normal bowel sounds and soft. Nontender. Nondistended, no hernias or masses, no organomegaly. Extremities--no cyanosis or clubbing. Trace bilateral pretibial pitting edema right greater than left Dermatologic--normal skin turgor, normal color, no abnormal lymph nodes, no rash. Neurologic--cranial nerves II through XII grossly intact. Rheumatologic--normal range of motion. Patient does complain of right anterior thigh pain on palpation Psychiatric--normal affect. Principal Diagnosis Bilateral pulmonary emboli, right lower EXTR DVT Discharge Exam General: Well-appearing, NAD Cardiovascular: RRR, no M/R/G Pulmonary: CTAB, no W/R/R Extremities: Moving all extremities, + mild bilateral pitting edema R>L Integumentary: No suspicious rash or lesion on exposed skin Neurologic: AAOx3, no focal deficits Psychiatric: Appropriate mood/affect Discharge Data Allergies Allergy/AdvReac Type Severity Reaction Status Date / Time lansoprazole [From Prevacid] Allergy Intermediate Palpitation Verified 01/19/23 11:38 s lactose AdvReac Mild Gastrointestinal Verified 01/19/23 11:38 Upset Consultations 03/06/23 00:13 ED Decision to Admit Stat Ordered Studies 03/05/23 20:43 CT angio chest PE protocol Stat 03/05/23 20:54 CT abd pelvis IV con only Stat 03/06/23 00:46 US venous doppler LE Stat Hospital Course (1) Bilateral pulmonary embolism: Bilateral pulmonary emboli/DVT of right lower extremity, no provoking feature identified other than patient was diagnosed with COVID few home test in August Heparin bolus then drip begun in the ED, transitioned to Eliquis 10 mg twice daily x7 days and transitioned to 5 mg twice daily, duration to be determined Echo with mildly dilated LV with normal EF of 60 to 65%, no regional wall motion abnormalities, moderate concentric LVH, mildly dilated right ventricle with normal systolic function, mild biatrial dilation, no significant valvular abnormalities, moderate pulmonary hypertension, mildly dilated aortic root Hypercoagulable work-up pending Consider hematology consultation outpatient Supplemental O2 transitioned off and did well with walk test, recommend periodic checks of SPO2 at home Should avoid use of naproxen or other NSAIDs while on anticoagulation (2) Deep vein thrombosis (DVT) of right lower extremity: As above (3) Anemia: Mild anemia in setting of starting heparin drip, unable to obtain FOBT though per patient report ER rectal Hemoccult testing was normal Recommend recheck and continue management outpatient (4) Frequent unifocal PVCs: Follows with cardiology Continue flecainide 50 mg p.o. every 12 hours (5) Enlarged prostate with lower urinary tract symptoms (LUTS): Continue tamsulosin (6) Elevated blood pressure reading: Counseled on monitoring at home with goal BP less than 130/80 Total Time Total Time Spent Total Time Spent (In Minutes): 40 Total Time Includes: Examination of the Patient, Discharge Planning and Medication Reconciliation Discharge Plan Discharge Items Patient Disposition: Home - Self-Care Reason For Visit: B/L PE'S Discharge Diagnosis: Bilateral pulmonary embolisms, right DVT Activity: As commented below Activity Comment: Activity as tolerated Non-emergency contact: Primary Care Provider Call non-emergency contact if: you have any medication questions, your symptoms worsen and your pain is not controlled Follow-up/Referrals: Akua Corbett DO [Primary Care Provider] - Diet: Regular Addtl Attending Provider Instructions: You are diagnosed with blood clots in both lungs (both lower lobes and right middle lobe) and blood clots in your right leg (lower part of right superficial femoral vein and right popliteal vein). This caused a little extra stress on your heart noted on the echocardiogram called pulmonary hypertension. You were started on a heparin drip to help thin your blood, and this was transitioned to Eliquis (apixaban) on discharge. Take 10 mg 2 times a day for 7 days and then start taking 5 mg 2 times a day. There are several labs that are pendingyou will need to discuss this with your primary care doctor. Your primary care doctor will be able to help determine the duration of taking the blood thinning medications based on these result. If there are any questions, you can always meet with a cue selector for consultation outpatient. Monitor your oxygen at home and your blood pressures at home. Your goal oxygen should be above 90%, and your blood pressure should be less than 130/80. I recommend you also discuss your mild anemia with your primary care physician and have follow-up blood work to reassess. If you do not hear from your primary care office within the next 2 days, reach out let them know you are in the hospital over the weekend in order to schedule a follow-up appointment. Pending Studies at Discharge: Yes Studies:: Hypercoagulable panel (Antithrombin III, beta-2 glycoprotein IgG and IgM, cardiolipin antibody IgG and IgM, factor II mutation, factor V Leiden mutation, homocysteine, lupus anticoag, protein C, and protein S) Stand-Alone Forms: My [facility] Medications and DC Order Prescriptions: New oxycodone 5 mg Tablet 5 mg PO Q4HWA PRN (Reason: severe pain (scale score 7-10)) Qty: 10 0RF Eliquis 5 mg Tablet 10 mg PO BID 12 Days Qty: 48 0RF Eliquis 5 mg tablet 5 mg PO BID 30 Days Qty: 60 0RF Rx Instructions: Start after completion of 1 week of the 10mg dose taken 2 times per day Continued tamsulosin [Flomax] 0.4 mg capsule 0.4 mg PO QAM Qty: 90 3RF acetaminophen 325 mg capsule 325 mg PO QID PRN (Reason: Pain) tadalafil 5 mg tablet 5 mg PO DAILY Qty: 90 3RF omeprazole [Prilosec] 40 mg PO DAILY PRN (Reason: Heartburn) flecainide 50 mg tablet 50 mg PO Q12H Qty: 60 2RF clotrimazole-betamethasone 1-0.05 % Cream 1 applic TOPICAL BID PRN (Reason: Rash) Rx Instructions: feet albuterol sulfate 90 mcg/actuation Hfa Aerosol Inhaler 2 puff INHALATION Q6H PRN (Reason: Wheezing) multivitamin Capsule 1 cap PO QAM glucosamine-chondroitin [Osteo Bi-Flex] 250-200 mg Tablet 1 tab PO QAM Systane (PF) 0.4-0.3 % Dropperette 1 drp OPHTHALMIC (EYE) BID PRN (Reason: redness) coQ10 (ubiquinol) 200 mg Capsule 200 mg PO QPM omega 3-ohx-gya-fish oil [Fish Oil] 1,000 mg (120 mg-180 mg) Capsule 1 cap PO QAM ascorbic acid (vitamin C) [Vitamin C] 500 mg Tablet 500 mg PO DAILY amoxicillin 500 mg capsule 2,000 mg PO .1 HOUR BEFORE APPT. Rx Instructions: to use in March Discontinued naproxen sodium [Aleve] 220 mg Tablet 220 mg PO BID PRN (Reason: Pain) ibuprofen 200 mg Tablet 400 mg PO Q6H PRN (Reason: Pain) Discharge Orders: Discharge Order (Routine); Ordered 03/07/23 Ordered By: Miri Nichols/Other Patient Handouts: Apixaban Oral Tablet, Pulmonary Embolism, ED Deep Vein Thrombosis (DVT) Admission Data Admit Date/Time: 03/06/23 00:47 Attending Provider: Miri Darden Admit Provider: Cory Zamora Primary Care Provider: Akua Corbett Other Providers: Cory Zamora Other Interventions: Discharge Summary Assessment (RN) Last Done: 03/07/23 14:47 Coding Level of Care Code 47298 INP/OBS DISCH >30 MIN Diagnoses Bilateral pulmonary embolism I26.99 Deep vein thrombosis (DVT) of right lower extremity I82.401 Anemia D64.9 Frequent unifocal PVCs I49.3 Enlarged prostate with lower urinary tract symptoms (LUTS) N40.1 Elevated blood pressure reading R03.0
[2023-03-11 09:23] LABS: Anti Cardiolipin Ab IgG <2.0 GPL-U/mL; Anti Cardiolipin Ab IgM <2.0 MPL-U/mL; Anti-Thrombin III Activity 102 % normal (80-135); B2 Glycoprotein IgG <2.0 U/mL (<20.0); B2 Glycoprotein IgM <2.0 U/mL (<20.0); PTT LA Screen 34 sec (<=40); Protein S Functional(Activity) 101 % normal (70-150)
[2023-03-16 19:13] LABS: Factor 5 Mutation NEGATIVE
== END 2023-03-07 15:38 | disposition home or self-care (01) | DRG 299 ==
LOC: ED 19:07 → SUATTDRO 03-06 00:47 → EDINP 03-06 00:47 → INTOOBSV 03-06 00:47 → 2E 03-06 15:02